=== PATIENT | male | born 1960 | race Caucasian/White ===

== ENCOUNTER 2017-06-29 10:59 | Emergency (ER) | payer MEDICARE, BC ==
[2017-06-29 11:13] VITALS: BP 117/63
[2017-06-29] MEDS ORDERED: Lidocaine/EPINEPHrine/Tetracaine Soln 5 ML Each TOP ONE (11:19)
--- NOTE | 2017-06-29 11:25 | EDM.PDOC ---
ED HPI GENERAL MEDICAL PROBLEM - General Chief Complaint: Laceration Stated Complaint: MED VIA NORTH Time Seen by Provider: 06/29/17 11:15 Source of Information: Reports: Patient, EMS, RN History Limitations: Reports: Language Barrier, Physical Impairment - History of Present Illness INITIAL COMMENTS - FREE TEXT/NARRATIVE: Alex is a 57 year old male with a hx of parkinson's who presents to the ED today from care home with a scalp laceration and ? right shoulder injury. Patient apparently fell out of bed and struck his head on his nightstand. Patient is alert, he denies any pain. He denies any pain to shoulder or any other area. Patient has difficulty speaking secondary to his parkinson's. Onset: Today - Related Data Allergies Allergy/AdvReac Type Severity Reaction Status Date / Time No Known Allergies Allergy Verified 06/29/17 11:12 Home Meds: Home Meds Carbidopa/Levodopa [Carbidopa-Levo ER 50-200] 1 tab PO QAM 01/13/14 [History] Carbidopa/Levodopa [Carbidopa-Levodopa 25-100] 3 tab PO QID 01/13/14 [History] Enalapril Maleate 20 mg PO BID 01/13/14 [History] Latanoprost [Xalatan 0.005% Ophth Soln] 1 drop EYEBOTH BEDTIME 01/13/14 [History ] Metoprolol Succinate [Toprol XL 100mg] 100 mg PO DAILY 01/13/14 [History] Rasagiline [Azilect] 1 mg PO DAILY 01/13/14 [History] Simvastatin 40 mg PO DAILY 01/13/14 [History] Tamsulosin HCl 0.4 mg PO DAILY 01/13/14 [History] rOPINIRole HCl [Ropinirole HCl] 3 mg PO TID 01/13/14 [History] Aspirin [Adult Low Dose Aspirin EC] 81 mg PO BEDTIME 01/14/14 [History] Docusate Sodium [Colace] 100 mg PO ASDIRECTED PRN 01/14/14 [History] Polyethylene Glycol 3350 [MiraLAX] 17 gm PO DAILY 01/14/14 [History] Zinc Picolinate 25 mg PO DAILY 01/14/14 [History] *Protein Supplement 1 bottle PO BID 05/02/14 [History] Dorzolamide/Timolol [Cosopt 2%-0.5% Ophth Soln] 0 ml EYEBOTH BID bottle [Rx] Multivitamin [Multi-Vitamin Daily] 1 tab PO DAILY 07/05/15 [History] QUEtiapine [SEROquel] 25 mg PO BID #60 tablet 08/26/15 [Rx] LORazepam [LORazepam] 06/29/17 [History] Omeprazole [Omeprazole] 06/29/17 [History] Past Medical History - Past Health History Medical/Surgical History: Denies Medical/Surgical History Other Musculoskeletal History: parkinson's. frequent flalls Neurological History: Reports: Parkinson's Other Dermatologic History: mulitple scabs and abrations to knees and for head from prior falls Social & Family History - Tobacco Use Smoking Status *Q: Never Smoker Second Hand Smoke Exposure: No - Alcohol Use Days Per Week of Alcohol Use: 0 - Recreational Drug Use Recreational Drug Use: No ED ROS GENERAL - Review of Systems Review Of Systems: See Below Constitutional: Reports: No Symptoms HEENT: Reports: No Symptoms Respiratory: Reports: No Symptoms Cardiovascular: Reports: No Symptoms Endocrine: Reports: No Symptoms GI/Abdominal: Reports: No Symptoms : Reports: No Symptoms Musculoskeletal: Reports: No Symptoms Skin: Reports: Wound Neurological: Reports: No Symptoms Psychiatric: Reports: No Symptoms Hematologic/Lymphatic: Reports: No Symptoms Immunologic: Reports: No Symptoms ED EXAM, SKIN/RASH Exam: See Below Exam Limited By: No Limitations General Appearance: Alert, WD/WN, No Apparent Distress Eye Exam: Bilateral Eye: EOMI, PERRL Ears: Normal External Exam, Normal TMs Nose: Normal Inspection Throat/Mouth: Normal Inspection, Normal Oropharynx Head: Other (1 cm scalp laceration just above right ear) Neck: Normal Inspection, Supple, Non-Tender, Full Range of Motion. No: Tender Lateral, Tender Midline Respiratory/Chest: No Respiratory Distress, Lungs Clear Cardiovascular: Normal Peripheral Pulses, Regular Rate, Rhythm, No Murmur GI/Abdominal: Normal Bowel Sounds, Soft, Non-Tender, No Organomegaly, Pelvis Stable Extremities: Normal Range of Motion, Non-Tender, Normal Capillary Refill, Other (raised area to right shoulder, top of humeral head, non-tender, likely chronic) Neurological: Alert, Oriented, CN II-XII Intact, Abnormal Reflexes, Other ( Tremulous at times, hx of parkinson's) Psychiatric: Normal Affect Skin: Warm, Dry, Wound/Incision (1 cm laceration above right ear (scalp)) Lymphatic: No Adenopathy Course - Vital Signs Last Recorded V/S: Last Vital Signs Temp 35.4 C 06/29/17 12:08 Pulse 72 06/29/17 12:08 Resp 16 06/29/17 12:08 BP 117/63 06/29/17 12:08 Pulse Ox 97 06/29/17 12:08 Alex is a 57-year-old male with a history of Parkinson's who presents to the emergency department today after falling and sustaining a scalp laceration to above his right ear. [facility] staff was also concerned as patient has a new deformity to his right shoulder which was not there prior to today. Patient on exam here is alert and oriented, his Parkinson's has made it difficult for him to speak. Patient denies any pain. Patient demonstrates full range of motion of right upper extremity, there is a step-off on exam and crepitus noted, concerns for AC separation versus clavicle fracture although patient is non-tender. There is question that this is old, however, again we have report from care home staff that this was not noted prior to today. Patient's tetanus shot is up- to-date. LET was applied to patient's scalp wound and wound was closed with 3 emilio after well irrigated with saline. X-ray was obtained of the patient's right shoulder which is consistent with a grade 3 AC separation, questionable finding on first right rib, X-ray was reviewed with Officer, agreed with AC separation, no acute dislocation or fracture noted per radiology. I spoke with Inez, nurse practitioner from our orthopedics clinic who recommends slinging patient's right arm and having him follow-up in the orthopedic clinic on Saturday. Sling was applied, discharge paperwork was discussed with patient and sent back to care home with him. Staple removal in 5 days. Patient can take Tylenol/ibuprofen for pain, ice was encouraged, patient should keep sling on as much as possible, reasons to return were discussed and patient was discharged in stable condition. I am still not convinced with patient's lack of pain that this is a new AC separation finding today, this can be further evaluated at the orthopedic clinic on Saturday. - Orders/Labs/Meds Orders: Active Orders 24 hr Category Date Time Status Shoulder Comp Rt [CR] Stat Exams 06/29/17 11:19 Taken Meds: Medications Discontinued Medications Generic Name Dose Route Start Last Admin Trade Name Aedlina PRN Reason Stop Dose Admin Lidocaine/Tetracaine 5 ml 06/29/17 11:19 06/29/17 12:22 Latisha Cochran TOP 06/29/17 11:20 5 ml ONETIME ONE Administration Departure - Departure Time of Disposition: 13:00 Disposition: DC/Tfer to SNF 03 Condition: Good Clinical Impression: Scalp laceration Qualifiers: Encounter type: initial encounter Qualified Code(s): S01.01XA - Laceration without foreign body of scalp, initial encounter AC separation, type 3 Qualifiers: Encounter type: initial encounter Laterality: right Qualified Code(s): S43.101A - Unspecified dislocation of right acromioclavicular joint, initial encounter - Discharge Information Instructions: Laceration Care, Adult, [id number], Stitches, Emilio, or Adhesive Wound Closure, [id number], Acromioclavicular Separation With Rehab- [facility] Referrals: PCP,None [Primary Care Provider] - Forms: ED Department Discharge Additional Instructions: Keep sling on as much as possible Ice to shoulder 20 minutes at a time several times a day. Tylenol/Ibuprofen as needed for pain. Ortho clinic will call Saturday to schedule an appt. Bacitracin to scalp laceration twice daily for 3 days. Staple removal in 5 days. - My Orders Last 24 Hours: My Active Orders 06/29/17 11:19 Shoulder Comp Rt [CR] Stat - Assessment/Plan Last 24 Hours: My Active Orders 06/29/17 11:19 Shoulder Comp Rt [CR] Stat
== END 2017-06-29 13:08 ==
LOC: JP.ED 10:59
DX: S01.01XA Laceration without foreign body of scalp, initial encounter (principal); S43.101A Unspecified dislocation of right acromioclavicular joint, initial encounter; G20 Parkinson's disease; Z79.899 Other long term (current) drug therapy; Z91.81 History of falling; Z79.82 Long term (current) use of aspirin; W06.XXXA Fall from bed, initial encounter
CPT/HCPCS: 12001; 73030; 99284; A9270

== ENCOUNTER 2017-07-24 10:56 | Emergency (ER) | payer MEDICARE, BC ==
--- NOTE | 2017-07-24 12:33 | EDM.PDOCBH ---
ED HPI GENERAL MEDICAL PROBLEM - General Chief Complaint: Behavioral/Psych Stated Complaint: MEDICAL VIA [facility] Time Seen by Provider: 07/24/17 12:21 Source of Information: Reports: Patient, RN Notes Reviewed History Limitations: Reports: No Limitations - History of Present Illness INITIAL COMMENTS - FREE TEXT/NARRATIVE: 57-year-old gentleman presents emergency department today via EMS services, he is a resident of [facility] initial call from EMS states that he is brought to the emergency department for evaluation of behavioral problems, in specific patient has been more belligerent and spitting out his medications. When questioned on this he states he was upset because he was not provided shower today. Also of note is his blood pressure is elevated he is complaining of a headache - Related Data Allergies Allergy/AdvReac Type Severity Reaction Status Date / Time No Known Allergies Allergy Verified 06/29/17 11:12 Home Meds: Home Meds Enalapril Maleate 5 mg PO DAILY 01/13/14 [History] Latanoprost [Xalatan 0.005% Ophth Soln] 1 drop EYEBOTH BEDTIME 01/13/14 [History ] Metoprolol Succinate [Toprol XL 100mg] 50 mg PO DAILY 01/13/14 [History] Rasagiline [Azilect] 1 mg PO DAILY 01/13/14 [History] Simvastatin 40 mg PO DAILY 01/13/14 [History] Tamsulosin HCl 0.4 mg PO DAILY 01/13/14 [History] rOPINIRole HCl [Ropinirole HCl] 2 mg PO TID 01/13/14 [History] Aspirin [Adult Low Dose Aspirin EC] 81 mg PO BEDTIME 01/14/14 [History] Docusate Sodium [Colace] 100 mg PO ASDIRECTED PRN 01/14/14 [History] Polyethylene Glycol 3350 [MiraLAX] 17 gm PO DAILY 01/14/14 [History] Zinc Picolinate 25 mg PO DAILY 01/14/14 [History] Dorzolamide/Timolol [Cosopt 2%-0.5% Ophth Soln] 0 ml EYEBOTH BID bottle [Rx] Multivitamin [Multi-Vitamin Daily] 1 tab PO DAILY 07/05/15 [History] LORazepam [LORazepam] 1 mg PO Q4H PRN 06/29/17 [History] Carbidopa/Levodopa [Rytary ER 36.25 mg-145 mg Cap] 2 cap PO TID 07/24/17 [ History] Carbidopa/Levodopa [Rytary ER 36.25 mg-145 mg Cap] 4 cap PO TID 07/24/17 [ History] Mirtazapine 15 mg PO BEDTIME 07/24/17 [History] Ondansetron HCl [Zofran] 4 mg PO Q6H PRN 07/24/17 [History] QUEtiapine [SEROquel] 75 mg PO BID 07/24/17 [History] Past Medical History Other Musculoskeletal History: parkinson's. frequent flalls Neurological History: Reports: Parkinson's Psychiatric History: Reports: Depression, Mood Swings Other Dermatologic History: mulitple scabs and abrations to knees and for head from prior falls Social & Family History - Tobacco Use Smoking Status *Q: Unknown Ever Smoked Second Hand Smoke Exposure: No - Caffeine Use Caffeine Use: Reports: Coffee - Alcohol Use Days Per Week of Alcohol Use: 0 - Recreational Drug Use Recreational Drug Use: No ED ROS GENERAL - Review of Systems Review Of Systems: See Below Constitutional: Reports: No Symptoms HEENT: Reports: No Symptoms Respiratory: Reports: No Symptoms Cardiovascular: Reports: No Symptoms GI/Abdominal: Reports: No Symptoms : Reports: No Symptoms Neurological: Reports: Headache Psychiatric: Reports: Mood Lability ED EXAM, BEHAVIORAL HEALTH - Physical Exam Exam: See Below Exam Limited By: No Limitations General Appearance: Alert, WD/WN, No Apparent Distress Respiratory/Chest: No Respiratory Distress, Lungs Clear, Normal Breath Sounds, No Accessory Muscle Use, Chest Non-Tender Cardiovascular: Regular Rate, Rhythm, No Murmur Psychiatric: Alert, Flat Affect. No: Uncooperative, Homicidal Thoughts, Suicidal Plan, Auditory Hallucinations, Visual Hallucinations, Grandiose Thoughts, Paranoid Thoughts, Threatening Behavior COURSE, BEHAVIORAL HEALTH COMP - Course Vital Signs: Last Vital Signs Temp 97.5 F 07/24/17 11:04 Pulse 77 07/24/17 14:38 Resp 16 07/24/17 13:53 BP 169/110 H 07/24/17 14:38 Pulse Ox 97 07/24/17 13:53 Orders, Labs, Meds: Active Orders 24 hr Category Date Time Status Cardiac Monitoring [RC] .As Directed Care 07/24/17 12:28 Active EKG Documentation Completion [RC] ASDIRECTED Care 07/24/17 12:29 Active EKG 12 Lead [EK] Stat Ther 07/24/17 12:29 Ordered Laboratory Tests 07/24/17 07/24/17 07/24/17 Range/Units 12:39 12:39 12:42 WBC 4.9 (4.5-11.0) K/uL RBC 5.45 (4.30-5.90) M/uL Hgb 14.8 (12.0-15.0) g/dL Hct 44.2 (40.0-54.0) % MCV 81 (80-98) fL MCH 27 (27-31) pg MCHC 34 (32-36) % Plt Count 213 (150-400) K/uL Neut % (Auto) 59 (36-66) % Lymph % (Auto) 22 L (24-44) % Edmunds % (Auto) 12 H (2-6) % Eos % (Auto) 6 H (2-4) % Baso % (Auto) 1 (0-1) % Sodium 139 L (140-148) mmol/L Potassium 4.8 (3.6-5.2) mmol/L Chloride 106 (100-108) mmol/L Carbon Dioxide 25 (21-32) mmol/L Anion Gap 12.8 (5.0-14.0) mmol/L BUN 17 (7-18) mg/dL Creatinine 1.0 (0.8-1.3) mg/dL Est Cr Clr Drug Dosing TNP Estimated GFR (MDRD) > 60 (>60) Glucose 114 H (74-106) mg/dL Calcium 8.8 (8.5-10.1) mg/dL Total Bilirubin 0.3 (0.2-1.0) mg/dL AST 29 (15-37) U/L ALT 24 D (12-78) U/L Alkaline Phosphatase 81 (46-116) U/L Troponin I < 0.017 (0.000-0.056) ng/mL Total Protein 7.5 (6.4-8.2) g/dL Albumin 3.9 (3.4-5.0) g/dL Globulin 3.6 H (2.3-3.5) g/dL Albumin/Globulin Ratio 1.1 L (1.2-2.2) Urine Color Yellow Urine Appearance Clear Urine pH 7.0 (4.5-8.0) Ur Specific [place] 1.010 (1.008-1.030) Urine Protein Negative (NEGATIVE) mg/dL Urine Glucose (UA) Normal (NEGATIVE) mg/dL Urine Ketones Negative (NEGATIVE) mg/dL Urine Occult Blood Negative (NEGATIVE) Urine Nitrite Negative (NEGAITVE) Urine Bilirubin Negative (NEGATIVE) Urine Urobilinogen Normal (NORMAL) mg/dL Ur Leukocyte Esterase Negative (NEGATIVE) Urine RBC Not seen (0-5) Urine WBC Not seen (0-5) Ur Epithelial Cells Not seen Amorphous Sediment Not seen Urine Bacteria Not seen Urine Mucus Not seen Medications Discontinued Medications Generic Name Dose Route Start Last Admin Trade Name Freq PRN Reason Stop Dose Admin Acetaminophen 650 mg 07/24/17 13:33 07/24/17 13:36 Tylenol PO 07/24/17 13:34 650 mg NOW ONE Administration Lisinopril 10 mg 07/24/17 13:55 07/24/17 14:01 Prinivil PO 07/24/17 13:56 10 mg ONETIME ONE Administration Departure - Departure Time of Disposition: 15:49 Disposition: DC/Tfer to [facility] 63 Condition: Fair Clinical Impression: Hypertensive urgency - Discharge Information Referrals: PCP,None [Primary Care Provider] - Forms: ED Department Discharge Additional Instructions: Please followup with your primary care provider in 3-5 days if not better, please call return to the emergency department with worsening of symptoms. - My Orders Last 24 Hours: My Active Orders 07/24/17 12:28 Cardiac Monitoring [RC] .As Directed 07/24/17 12:29 EKG Documentation Completion [RC] ASDIRECTED EKG 12 Lead [EK] Stat - Assessment/Plan Last 24 Hours: My Active Orders 07/24/17 12:28 Cardiac Monitoring [RC] .As Directed 07/24/17 12:29 EKG Documentation Completion [RC] ASDIRECTED EKG 12 Lead [EK] Stat Plan: Assessment Acuity = acute Site and laterality = hypertensive urgency comp came patient known history of Parkinson's Etiology = unclear etiology Manifestations = none Location of injury = Home Lab values = CBC, CMP, EKG, urinalysis all within normal limits Plan He was provided Tylenol and lisinopril his blood pressure came down the 160s no inappropriate behaviors were observed while in the ED for several hours plan is to discharge back to his current facility with long-term goal of transferring closer to family Patient was in agreement with the plan all questions were answered, they were instructed to return to the emergency department or call for worsening symptoms. This note was dictated using spotdock voice recognition software please call with any questions.
[2017-07-24] MEDS ORDERED: Acetaminophen 325 MG Tab PO ONE (13:33)
[2017-07-24] MEDS ORDERED: Lisinopril 10 MG Tab PO ONE (13:55)
[2017-07-24 14:41] VITALS: BP 169/110
== END 2017-07-24 17:50 ==
LOC: JP.ED 10:56
DX: I16.0 Hypertensive urgency (principal); G20 Parkinson's disease; F32.9 Major depressive disorder, single episode, unspecified; Z79.82 Long term (current) use of aspirin; Z79.899 Other long term (current) drug therapy
CPT/HCPCS: 36415; 80053; 81001; 84484; 85025; 93005; 99285; A9270; 93010

== ENCOUNTER 2017-09-10 11:20 | Emergency (ER) | payer MEDICARE, BC ==
--- NOTE | 2017-09-10 13:48 | EDM.PDOCBH ---
<Chad Burch - Last Filed: 09/12/17 06:29> ED HPI GENERAL MEDICAL PROBLEM - General Chief Complaint: Behavioral/Psych Stated Complaint: [facility] Time Seen by Provider: 09/10/17 11:35 - Related Data Allergies Allergy/AdvReac Type Severity Reaction Status Date / Time No Known Allergies Allergy Verified 06/29/17 11:12 Home Meds: Home Meds Enalapril Maleate 5 mg PO DAILY 01/13/14 [History] Latanoprost [Xalatan 0.005% Ophth Soln] 1 drop EYEBOTH BEDTIME 01/13/14 [History ] Metoprolol Succinate [Toprol XL 100mg] 50 mg PO DAILY 01/13/14 [History] Rasagiline [Azilect] 1 mg PO DAILY 01/13/14 [History] Simvastatin 40 mg PO DAILY 01/13/14 [History] Tamsulosin HCl 0.4 mg PO DAILY 01/13/14 [History] rOPINIRole HCl [Ropinirole HCl] 3 mg PO TID 01/13/14 [History] Aspirin [Adult Low Dose Aspirin EC] 81 mg PO BEDTIME 01/14/14 [History] Docusate Sodium [Colace] 100 mg PO ASDIRECTED PRN 01/14/14 [History] Polyethylene Glycol 3350 [MiraLAX] 17 gm PO DAILY 01/14/14 [History] Zinc Picolinate 220 mg PO DAILY 01/14/14 [History] Dorzolamide/Timolol [Cosopt 2%-0.5% Ophth Soln] 0 ml EYEBOTH BID bottle [Rx] Multivitamin [Multi-Vitamin Daily] 1 tab PO DAILY 07/05/15 [History] LORazepam 1 mg PO BID PRN 06/29/17 [History] Carbidopa/Levodopa [Rytary ER 36.25 mg-145 mg Cap] 2 cap PO TID 07/24/17 [ History] Carbidopa/Levodopa [Rytary ER 36.25 mg-145 mg Cap] 4 cap PO TID 07/24/17 [ History] Mirtazapine 15 mg PO BEDTIME 07/24/17 [History] Ondansetron HCl [Zofran] 4 mg PO Q6H PRN 07/24/17 [History] QUEtiapine [SEROquel] 75 mg PO BID 07/24/17 [History] Carbidopa/Levodopa [Carbidopa-Levo ER 50-200] 2 tab PO DAILY 09/10/17 [History] Carbidopa/Levodopa [Carbidopa-Levodopa 25-100] 1 tab PO ASDIRECTED 09/10/17 [ History] Omeprazole 20 mg PO DAILY 09/10/17 [History] Sulfamethoxazole/Trimethoprim [IJD: Sulfamethoxazole/Trimethoprim DS] 1 tab PO BID #20 tablet 09/18/17 [Rx] COURSE, BEHAVIORAL HEALTH COMP - Course Vital Signs: Last Vital Signs Temp 97 F 09/18/17 08:39 Pulse 77 09/18/17 08:39 Resp 16 09/18/17 08:39 BP 160/97 H 09/18/17 08:39 Pulse Ox 97 09/18/17 08:39 Orders, Labs, Meds: Laboratory Tests 09/10/17 09/10/17 09/10/17 Range/Units 11:42 11:42 12:23 WBC 7.5 (4.5-11.0) K/uL RBC 5.03 (4.30-5.90) M/uL Hgb 13.4 (12.0-15.0) g/dL Hct 41.0 (40.0-54.0) % MCV 82 (80-98) fL MCH 27 (27-31) pg MCHC 33 (32-36) % Plt Count 212 (150-400) K/uL Neut % (Auto) 79 H (36-66) % Lymph % (Auto) 9 L (24-44) % Grand % (Auto) 10 H (2-6) % Eos % (Auto) 2 (2-4) % Baso % (Auto) 0 (0-1) % Sodium 137 L (140-148) mmol/L Potassium 4.5 (3.6-5.2) mmol/L Chloride 105 (100-108) mmol/L Carbon Dioxide 24 (21-32) mmol/L Anion Gap 12.5 (5.0-14.0) mmol/L BUN 26 H D (7-18) mg/dL Creatinine 1.0 (0.8-1.3) mg/dL Est Cr Clr Drug Dosing TNP Estimated GFR (MDRD) > 60 (>60) Glucose 90 (74-106) mg/dL Calcium 8.8 (8.5-10.1) mg/dL Magnesium (1.8-2.4) mg/dL Total Bilirubin 0.6 D (0.2-1.0) mg/dL AST 38 H (15-37) U/L ALT 13 (12-78) U/L Alkaline Phosphatase 74 (46-116) U/L Total Protein 6.9 (6.4-8.2) g/dL Albumin 3.5 (3.4-5.0) g/dL Globulin 3.4 (2.3-3.5) g/dL Albumin/Globulin Ratio 1.0 L (1.2-2.2) TSH, Ultra Sensitive (0.358-3.740) uIU/mL Urine Color Yellow Urine Appearance Clear Urine pH 5.0 (4.5-8.0) Ur Specific Chloe 1.025 (1.008-1.030) Urine Protein Negative (NEGATIVE) mg/dL Urine Glucose (UA) Normal (NEGATIVE) mg/dL Urine Ketones 15 H (NEGATIVE) mg/dL Urine Occult Blood Negative (NEGATIVE) Urine Nitrite Negative (NEGAITVE) Urine Bilirubin Small (NEGATIVE) Urine Urobilinogen 1 (NORMAL) mg/dL Ur Leukocyte Esterase Negative (NEGATIVE) Urine RBC 0-5 (0-5) Urine WBC 0-5 (0-5) Ur Epithelial Cells Few Amorphous Sediment Not seen Urine Bacteria Few Urine Mucus Few 09/10/17 09/15/17 09/15/17 Range/Units 19:28 19:12 19:12 WBC 6.7 (4.5-11.0) K/uL RBC 4.89 (4.30-5.90) M/uL Hgb 13.0 (12.0-15.0) g/dL Hct 40.0 (40.0-54.0) % MCV 82 (80-98) fL MCH 27 (27-31) pg MCHC 33 (32-36) % Plt Count 277 (150-400) K/uL Neut % (Auto) 69 H (36-66) % Lymph % (Auto) 15 L (24-44) % Grand % (Auto) 12 H (2-6) % Eos % (Auto) 5 H (2-4) % Baso % (Auto) 0 (0-1) % Sodium 130 L (140-148) mmol/L Potassium 4.4 (3.6-5.2) mmol/L Chloride 96 L (100-108) mmol/L Carbon Dioxide 25 (21-32) mmol/L Anion Gap 13.4 (5.0-14.0) mmol/L BUN 19 H (7-18) mg/dL Creatinine 1.0 (0.8-1.3) mg/dL Est Cr Clr Drug Dosing TNP Estimated GFR (MDRD) > 60 (>60) Glucose 110 H (74-106) mg/dL Calcium 8.7 (8.5-10.1) mg/dL Magnesium (1.8-2.4) mg/dL Total Bilirubin (0.2-1.0) mg/dL AST (15-37) U/L ALT (12-78) U/L Alkaline Phosphatase (46-116) U/L Total Protein (6.4-8.2) g/dL Albumin (3.4-5.0) g/dL Globulin (2.3-3.5) g/dL Albumin/Globulin Ratio (1.2-2.2) TSH, Ultra Sensitive 2.038 (0.358-3.740) uIU/mL Urine Color Urine Appearance Urine pH (4.5-8.0) Ur Specific Chloe (1.008-1.030) Urine Protein (NEGATIVE) mg/dL Urine Glucose (UA) (NEGATIVE) mg/dL Urine Ketones (NEGATIVE) mg/dL Urine Occult Blood (NEGATIVE) Urine Nitrite (NEGAITVE) Urine Bilirubin (NEGATIVE) Urine Urobilinogen (NORMAL) mg/dL Ur Leukocyte Esterase (NEGATIVE) Urine RBC (0-5) Urine WBC (0-5) Ur Epithelial Cells Amorphous Sediment Urine Bacteria Urine Mucus 09/15/17 Range/Units 19:27 WBC (4.5-11.0) K/uL RBC (4.30-5.90) M/uL Hgb (12.0-15.0) g/dL Hct (40.0-54.0) % MCV (80-98) fL MCH (27-31) pg MCHC (32-36) % Plt Count (150-400) K/uL Neut % (Auto) (36-66) % Lymph % (Auto) (24-44) % Grand % (Auto) (2-6) % Eos % (Auto) (2-4) % Baso % (Auto) (0-1) % Sodium (140-148) mmol/L Potassium (3.6-5.2) mmol/L Chloride (100-108) mmol/L Carbon Dioxide (21-32) mmol/L Anion Gap (5.0-14.0) mmol/L BUN (7-18) mg/dL Creatinine (0.8-1.3) mg/dL Est Cr Clr Drug Dosing Estimated GFR (MDRD) (>60) Glucose (74-106) mg/dL Calcium 8.6 (8.5-10.1) mg/dL Magnesium 1.8 (1.8-2.4) mg/dL Total Bilirubin (0.2-1.0) mg/dL AST (15-37) U/L ALT (12-78) U/L Alkaline Phosphatase (46-116) U/L Total Protein (6.4-8.2) g/dL Albumin (3.4-5.0) g/dL Globulin (2.3-3.5) g/dL Albumin/Globulin Ratio (1.2-2.2) TSH, Ultra Sensitive (0.358-3.740) uIU/mL Urine Color Urine Appearance Urine pH (4.5-8.0) Ur Specific Chloe (1.008-1.030) Urine Protein (NEGATIVE) mg/dL Urine Glucose (UA) (NEGATIVE) mg/dL Urine Ketones (NEGATIVE) mg/dL Urine Occult Blood (NEGATIVE) Urine Nitrite (NEGAITVE) Urine Bilirubin (NEGATIVE) Urine Urobilinogen (NORMAL) mg/dL Ur Leukocyte Esterase (NEGATIVE) Urine RBC (0-5) Urine WBC (0-5) Ur Epithelial Cells Amorphous Sediment Urine Bacteria Urine Mucus Medications Discontinued Medications Generic Name Dose Route Start Last Admin Trade Name Freq PRN Reason Stop Dose Admin Acetaminophen 1,000 mg 09/11/17 23:47 09/11/17 23:59 Tylenol Extra Strength PO 09/11/17 23:48 1,000 mg ONETIME ONE Administration Aspirin 81 mg 09/11/17 09:15 09/17/17 20:01 Aspirin PO 81 mg BEDTIME EMILIANO Administration Carbidopa/Levodopa 2 tab 09/10/17 19:05 09/10/17 20:43 Sinemet 25-100 Mg PO 09/10/17 19:06 2 tab ONETIME ONE Administration Carbidopa/Levodopa 1.5 tab 09/11/17 22:30 09/18/17 07:03 Sinemet Cr 50-200 Mg PO 1.5 tab TID@0230,0630,2230 EMILIANO Administration Carbidopa/Levodopa 3 tab 09/11/17 14:30 09/18/17 08:33 Sinemet Cr 50-200 Mg PO 3 tab TID@1030,1430,1830 EMILIANO Administration Cephalexin 500 mg 09/11/17 23:15 09/14/17 22:44 Keflex PO 09/18/17 15:16 Not Given Q8H EMILIANO Diphenhydramine HCl 50 mg 09/15/17 17:32 09/15/17 17:36 Benadryl IM 09/15/17 17:33 50 mg ONETIME ONE Administration Dorzolamide/Timolol 1 ml 09/11/17 21:00 09/18/17 08:28 Cosopt 2%-0.5% Ophth Soln EYEBOTH 1 drop BID EMILIANO Administration Enalapril Maleate 5 mg 09/12/17 09:00 09/18/17 08:35 Vasotec PO 5 mg DAILY EMILIANO Administration Haloperidol Lactate 10 mg 09/12/17 02:01 09/12/17 02:07 Haldol IM 09/12/17 02:02 10 mg ONETIME ONE Administration Ibuprofen 600 mg 09/14/17 12:38 09/14/17 12:59 Motrin PO 09/14/17 12:39 600 mg ONETIME ONE Administration Ibuprofen 400 mg 09/17/17 23:18 09/17/17 23:28 Motrin PO 09/17/17 23:19 400 mg ONETIME ONE Administration Latanoprost 1 ml 09/11/17 09:30 09/17/17 20:03 Xalatan 0.005% Ophth Soln EYEBOTH 1 drop BEDTIME EMILIANO Administration Lorazepam 1 mg 09/10/17 19:04 09/10/17 20:43 Ativan PO 09/10/17 19:05 1 mg ONETIME ONE Administration Lorazepam 1 mg 09/11/17 09:16 09/18/17 01:56 Ativan PO 1 mg BID PRN Administration Agitation Lorazepam 2 mg 09/15/17 19:00 09/15/17 19:15 Ativan IVPUSH 09/15/17 19:01 2 mg ONETIME ONE Administration Lorazepam 1 mg 09/16/17 19:27 09/16/17 19:34 Ativan PO 09/16/17 19:28 1 mg BID ONE Administration Lorazepam 1 mg 09/17/17 21:32 09/17/17 21:45 Ativan PO 09/17/17 21:33 1 mg ONETIME ONE Administration Lorazepam 1 mg 09/17/17 23:17 09/17/17 23:27 Ativan IM 09/17/17 23:18 1 mg ONETIME ONE Administration Metoprolol Succinate 50 mg 09/12/17 09:00 09/18/17 08:34 Toprol Xl PO 50 mg DAILY EMILIANO Administration Mirtazapine 15 mg 09/11/17 09:30 09/17/17 20:02 Remeron PO 15 mg BEDTIME EMILIANO Administration Olanzapine 5 mg 09/12/17 01:44 09/12/17 02:00 Zyprexa PO 09/12/17 01:45 5 mg ONETIME ONE Administration Ondansetron HCl 4 mg 09/11/17 09:19 Zofran Odt PO Q6H PRN Nausea/Vomiting Pantoprazole Sodium 20 mg 09/12/17 09:00 09/13/17 08:44 Protonix PO 20 mg DAILY EMILIANO Administration Pantoprazole Sodium 40 mg 09/11/17 10:00 09/18/17 07:03 Protonix PO 40 mg ACBREAKFAST EMILIANO Administration Polyethylene Glycol 17 gm 09/12/17 09:00 09/18/17 08:27 Miralax PO 17 gm DAILY EMILIANO Administration Quetiapine Fumarate 75 mg 09/10/17 19:03 09/10/17 20:43 Seroquel PO 09/10/17 19:04 75 mg ONETIME ONE Administration Quetiapine Fumarate 75 mg 09/11/17 21:00 Seroquel PO BID EMILIANO Quetiapine Fumarate 75 mg 09/11/17 10:00 09/18/17 08:27 Seroquel PO 75 mg BID EMILIANO Administration Rasagiline 1 mg 09/12/17 08:00 09/18/17 07:03 Azilect PO 1 mg DAILY@0800 EMILIANO Administration Ropinirole HCl 3 mg 09/10/17 19:04 09/10/17 20:43 Requip PO 09/10/17 19:05 3 mg ONETIME ONE Administration Ropinirole HCl 3 mg 09/11/17 09:30 09/18/17 08:27 Requip PO 3 mg TID EMILIANO Administration Simvastatin 40 mg 09/11/17 09:30 09/17/17 20:04 Zocor PO 40 mg BEDTIME EMILIANO Administration Sodium Chloride 10 ml 09/15/17 19:00 09/15/17 19:14 Saline Flush FLUSH 10 ml ASDIRECTED PRN Administration Keep Vein Open Tamsulosin HCl 0.4 mg 09/11/17 09:30 09/17/17 20:02 Flomax PO 0.4 mg BEDTIME EMILIANO Administration Trimethoprim/Sulfamethoxazole 1 tab 09/14/17 08:15 09/18/17 08:27 Septra Ds PO 1 tab BID EMILIANO Administration Re-Assessment/Re-Exam: 23.05 long-term emergency morning, awaiting placement, dementia with behavioral problems, related to Parkinson's disease Transferred to my care as 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 Initially assessed by Dr. Haro, see her emergency note 23.00 Presence of 3 large boils right deltoid area are noted23.00 Apply dressings Start cephalexin 500 mg 3 times a day 2330 restless despite lorazepam by mouth already ordered, Zyprexa 10 mg by mouth is ordered but even after this patient was quite agitated and repeatedly getting up, has had several stumbles fortunately none with injury. Because of containing unsafe behavior, and threatening aggression, 10 mg Haldol IM for sedation for his safety for her safety and so he can rest This was very effective sedation and he was able to sleep the rest of the night Transferred to care of Dr. Velez pending disposition Departure - Departure Disposition: DC/Tfer to [facility] Clinical Impression: Aggressive behavior, Parkinsons disease - Discharge Information Prescriptions: Sulfamethoxazole/Trimethoprim [IJD: Sulfamethoxazole/Trimethoprim DS] 1 tab PO BID #20 tablet Referrals: PCP,None [Primary Care Provider] - <OfficerCuco - Last Filed: 09/13/17 18:04> COURSE, BEHAVIORAL HEALTH COMP - Course Re-Assessment/Re-Exam: Daily rounding, no issues continue working on placement physical therapy did work with him today he has no complaints no requests Medical Clearance: 09/11/17 14:48 Rounded on patient has no particular issues would like to eat up and ambulate tolerating diet I did order his regular medications they are now scheduled, currently having difficulty with placement due to remote history of violent tendencies per psychologist note <Arabella Haro - Last Filed: 09/17/17 18:34> ED HPI GENERAL MEDICAL PROBLEM - General Source of Information: Reports: Patient History Limitations: Reports: No Limitations - History of Present Illness INITIAL COMMENTS - FREE TEXT/NARRATIVE: pt arrived with a history of parkinsons and mood swings. Onset: Sudden Duration: Hour(s):, Other (pt was very upset and stated that he was going to kill himself. ) Associated Symptoms: Reports: No Other Symptoms Right Upper Arm Pain Score (Numeric/FACES): 7 Past Medical History - Past Health History Medical/Surgical History: Denies Medical/Surgical History HEENT History: Reports: Impaired Vision Cardiovascular History: Reports: High Cholesterol, Hypertension Other Musculoskeletal History: parkinson's. frequent flalls Neurological History: Reports: Parkinson's Psychiatric History: Reports: Depression, Mood Swings Endocrine/Metabolic History: Reports: Diabetes, Type II Other Dermatologic History: mulitple scabs and abrations to knees and for head from prior falls - Infectious Disease History Infectious Disease History: Reports: Chicken Pox Social & Family History - Tobacco Use Smoking Status *Q: Never Smoker Second Hand Smoke Exposure: No - Caffeine Use Caffeine Use: Reports: Coffee - Alcohol Use Days Per Week of Alcohol Use: 0 - Recreational Drug Use Recreational Drug Use: No ED ROS GENERAL - Review of Systems Review Of Systems: See Below Constitutional: Reports: No Symptoms HEENT: Reports: No Symptoms Respiratory: Reports: No Symptoms Cardiovascular: Reports: No Symptoms Endocrine: Reports: No Symptoms GI/Abdominal: Reports: No Symptoms : Reports: No Symptoms Musculoskeletal: Reports: No Symptoms Skin: Reports: No Symptoms ED EXAM, BEHAVIORAL HEALTH - Physical Exam Exam: See Below Text/Narrative:: pt arrived with a history of threaten to kill himself. [facility] and he was trying to crawl out the window. Exam Limited By: No Limitations General Appearance: Alert, Anxious, Moderate Distress, Other (pupils equal and react. It varies a great deal with how much he communicates. ) Ears: Normal TMs Nose: Normal Inspection Throat/Mouth: Normal Inspection Head: Atraumatic Neck: Normal Inspection Respiratory/Chest: No Respiratory Distress Cardiovascular: Regular Rate, Rhythm GI/Abdominal: Soft, Non-Tender (Male) Exam: Deferred Rectal (Males) Exam: Deferred Back Exam: Normal Inspection Extremities: Normal Inspection Neurological: Alert, Other ( Pt does not communicate significantly) Psychiatric: Alert, Normal Cognition, Oriented COURSE, BEHAVIORAL HEALTH COMP - Course Medical Clearance: 09/10/17 14:14 pt has remained calm while here at the Er. His lab work looked good. Dr Antionette caban was contacted and he wwill come and evaluate the pt. Discharge vs Psych Eval/Treatment:: 09/17/17 18:34 pt was evaluated by myself both on the and the . The pt has been stable and not combative. He has required staff in the room to keep him safe as he is unstable on his feet. He did require ativan 1 mg po last nite and he did settle down and slept alot of the nite. He will be transfered tomorrow. <Francisco Velez - Last Filed: 09/18/17 12:13> COURSE, BEHAVIORAL HEALTH COMP - Course Re-Assessment/Re-Exam: Patient is seen and evaluated today, found to have worsening inflammation of the sores on his right arm. Some exudative drainage was cultured, he is on cephalexin but this is very suspicious for MRSA and was switched to Bactrim DS twice a day. Lesions were redressed. 09-16-2017 9:23 AM Patient is comfortable this morning. Had an episode of spastic activity overnight which she has had many times in the past, seemed to respond well to Benadryl. Wounds on his arm and right leg were reassessed, they are improving especially on the arm. MRSA was positive. Still had some exudative drainage from the subcutaneous wound on the anterior right knee, with pressure the remaining infection was expelled and the wound dressed. It was not tender. Medications will be continued as directed and a care conference discussing best care and placement possibilities for the patient is planned later this morning. A lifelong friend of the patient made a morning visit for 30 minutes just left. He said the patient seems to be his baseline and he has no particular concerns of any significant changes since last time he saw him as an outpatient. Departure - Departure Time of Disposition: 10:20 Condition: Fair
[2017-09-10] MEDS ORDERED: QUEtiapine 25 MG Tab PO ONE (19:03)
[2017-09-10] MEDS ORDERED: rOPINIRole 1 MG Tab PO ONE (19:04)
[2017-09-10] MEDS ORDERED: LORazepam 1 MG Tab PO ONE (19:04)
[2017-09-10] MEDS ORDERED: Carbidopa/Levodopa 25-100 MG Tab PO ONE (19:05)
[2017-09-11] MEDS ORDERED: Carbidopa/Levodopa 50-200 MG Tab.ER PO SCH (09:15)
[2017-09-11] MEDS ORDERED: Ondansetron 4 MG Tab.DIS PO PRN (09:19)
[2017-09-11] MEDS: Aspirin 81 MG Tab.Chew PO SCH ×2 (09:42→21:22)
[2017-09-11] MEDS: rOPINIRole 1 MG Tab PO SCH ×3 (09:43→21:24)
[2017-09-11] MEDS: Enalapril 5 MG Tab PO SCH (09:44)
[2017-09-11] MEDS: Metoprolol Succinate 50 MG Tab.ER PO SCH (09:48)
[2017-09-11] MEDS: QUEtiapine 25 MG Tab PO SCH ×2 (09:49→21:27)
[2017-09-11] MEDS: Dorzolamide/Timolol 2%-0.5% Ophth Soln 10 ML Bottle EYEBOTH SCH ×2 (10:56→22:57)
[2017-09-11] MEDS: Pantoprazole 40 MG Tab.CR PO SCH (13:41)
[2017-09-11] MEDS: Polyethylene Glycol 3350 Powder 17 GM Packet PO SCH (13:42)
[2017-09-11] MEDS: Carbidopa/Levodopa 50-200 MG Tab.ER PO SCH ×3 (14:36→21:29)
[2017-09-11] MEDS ORDERED: QUEtiapine 100 MG Tab PO SCH (21:00)
[2017-09-11] MEDS: Simvastatin 20 MG Tab PO SCH (21:22)
[2017-09-11] MEDS: Tamsulosin 0.4 MG Cap.ER PO SCH (21:24)
[2017-09-11] MEDS: Mirtazapine 15 MG Tab PO SCH (21:24)
[2017-09-11] MEDS: Latanoprost 0.005% Ophth Soln 2.5 ML Bottle EYEBOTH SCH (22:58)
[2017-09-11] MEDS: LORazepam 1 MG Tab PO PRN (23:32)
[2017-09-11] MEDS ORDERED: Acetaminophen 500 MG Tab PO ONE (23:47)
[2017-09-12] MEDS ORDERED: OLANZapine 5 MG Tab PO ONE (01:44)
[2017-09-12] MEDS ORDERED: Haloperidol Lactate 5 MG/ML SDV IM ONE (02:01)
[2017-09-12] MEDS: Carbidopa/Levodopa 50-200 MG Tab.ER PO SCH ×6 (07:01→23:55)
[2017-09-12] MEDS: Polyethylene Glycol 3350 Powder 17 GM Packet PO SCH (08:22)
[2017-09-12] MEDS: LORazepam 1 MG Tab PO PRN (08:23)
[2017-09-12] MEDS: rOPINIRole 1 MG Tab PO SCH ×3 (08:23→20:55)
[2017-09-12] MEDS: Cephalexin 250 MG Cap PO SCH ×5 (08:24→23:57)
[2017-09-12] MEDS: Pantoprazole 40 MG Tab.CR PO SCH (08:24)
[2017-09-12] MEDS: QUEtiapine 25 MG Tab PO SCH ×2 (08:25→20:56)
[2017-09-12] MEDS: Dorzolamide/Timolol 2%-0.5% Ophth Soln 10 ML Bottle EYEBOTH SCH ×2 (08:25→20:54)
[2017-09-12] MEDS: Enalapril 5 MG Tab PO SCH (08:31)
[2017-09-12] MEDS: Metoprolol Succinate 50 MG Tab.ER PO SCH (08:31)
[2017-09-12] MEDS ORDERED: Pantoprazole 40 MG Tab.CR PO SCH (09:00)
[2017-09-12] MEDS: Latanoprost 0.005% Ophth Soln 2.5 ML Bottle EYEBOTH SCH ×2 (15:12→21:02)
[2017-09-12] MEDS: Tamsulosin 0.4 MG Cap.ER PO SCH ×2 (15:12→20:54)
[2017-09-12] MEDS: Mirtazapine 15 MG Tab PO SCH ×2 (15:12→20:55)
[2017-09-12] MEDS: Simvastatin 20 MG Tab PO SCH ×2 (15:12→20:56)
[2017-09-12] MEDS: Aspirin 81 MG Tab.Chew PO SCH (20:54)
[2017-09-13] MEDS: Carbidopa/Levodopa 50-200 MG Tab.ER PO SCH ×6 (03:16→22:46)
[2017-09-13] MEDS: Cephalexin 250 MG Cap PO SCH ×3 (06:33→22:45)
[2017-09-13] MEDS: Pantoprazole 40 MG Tab.CR PO SCH (07:45)
[2017-09-13] MEDS: Metoprolol Succinate 50 MG Tab.ER PO SCH (08:41)
[2017-09-13] MEDS: Enalapril 5 MG Tab PO SCH (08:45)
[2017-09-13] MEDS: rOPINIRole 1 MG Tab PO SCH ×3 (08:45→20:55)
[2017-09-13] MEDS: QUEtiapine 25 MG Tab PO SCH ×2 (08:46→20:56)
[2017-09-13] MEDS: Dorzolamide/Timolol 2%-0.5% Ophth Soln 10 ML Bottle EYEBOTH SCH ×2 (08:47→20:54)
[2017-09-13] MEDS: Polyethylene Glycol 3350 Powder 17 GM Packet PO SCH (08:47)
[2017-09-13] MEDS: Aspirin 81 MG Tab.Chew PO SCH (20:54)
[2017-09-13] MEDS: Tamsulosin 0.4 MG Cap.ER PO SCH (20:55)
[2017-09-13] MEDS: Mirtazapine 15 MG Tab PO SCH (20:55)
[2017-09-13] MEDS: Simvastatin 20 MG Tab PO SCH (20:57)
[2017-09-13] MEDS: Latanoprost 0.005% Ophth Soln 2.5 ML Bottle EYEBOTH SCH (20:57)
[2017-09-14] MEDS: Carbidopa/Levodopa 50-200 MG Tab.ER PO SCH ×6 (02:18→21:03)
[2017-09-14] MEDS: Pantoprazole 40 MG Tab.CR PO SCH (07:23)
[2017-09-14] MEDS: Cephalexin 250 MG Cap PO SCH ×3 (07:32→22:44)
[2017-09-14] MEDS: Enalapril 5 MG Tab PO SCH (08:50)
[2017-09-14] MEDS: Dorzolamide/Timolol 2%-0.5% Ophth Soln 10 ML Bottle EYEBOTH SCH ×2 (08:50→20:58)
[2017-09-14] MEDS: Metoprolol Succinate 50 MG Tab.ER PO SCH (08:53)
[2017-09-14] MEDS: rOPINIRole 1 MG Tab PO SCH ×3 (08:54→21:01)
[2017-09-14] MEDS: QUEtiapine 25 MG Tab PO SCH ×2 (08:55→21:02)
[2017-09-14] MEDS: Sulfamethoxazole/Trimethoprim 800-160 MG Tab PO SCH ×3 (08:57→21:07)
[2017-09-14] MEDS: Polyethylene Glycol 3350 Powder 17 GM Packet PO SCH (09:01)
[2017-09-14] MEDS ORDERED: Ibuprofen 600 MG Tab PO ONE (12:38)
[2017-09-14] MEDS: Aspirin 81 MG Tab.Chew PO SCH (20:57)
[2017-09-14] MEDS: Mirtazapine 15 MG Tab PO SCH (21:01)
[2017-09-14] MEDS: Simvastatin 20 MG Tab PO SCH (21:02)
[2017-09-14] MEDS: Latanoprost 0.005% Ophth Soln 2.5 ML Bottle EYEBOTH SCH (21:02)
[2017-09-14] MEDS: Tamsulosin 0.4 MG Cap.ER PO SCH (21:06)
[2017-09-15] MEDS: Carbidopa/Levodopa 50-200 MG Tab.ER PO SCH ×6 (02:14→22:46)
[2017-09-15] MEDS: Pantoprazole 40 MG Tab.CR PO SCH (07:00)
[2017-09-15] MEDS: Sulfamethoxazole/Trimethoprim 800-160 MG Tab PO SCH ×2 (08:51→20:50)
[2017-09-15] MEDS: QUEtiapine 25 MG Tab PO SCH ×2 (08:52→20:50)
[2017-09-15] MEDS: rOPINIRole 1 MG Tab PO SCH ×3 (08:52→20:50)
[2017-09-15] MEDS: Enalapril 5 MG Tab PO SCH (08:52)
[2017-09-15] MEDS: Metoprolol Succinate 50 MG Tab.ER PO SCH (08:54)
[2017-09-15] MEDS: Dorzolamide/Timolol 2%-0.5% Ophth Soln 10 ML Bottle EYEBOTH SCH ×2 (08:55→20:50)
[2017-09-15] MEDS: Polyethylene Glycol 3350 Powder 17 GM Packet PO SCH (08:55)
[2017-09-15] MEDS: LORazepam 1 MG Tab PO PRN (17:04)
[2017-09-15] MEDS ORDERED: diphenhydrAMINE 50 MG/ML SDV IM ONE (17:32)
[2017-09-15] MEDS ORDERED: Sodium Chloride 0.9% 10 ML Syringe FLUSH PRN (19:00)
[2017-09-15] MEDS ORDERED: LORazepam 2 MG/ML MDV IVPUSH ONE (19:00)
[2017-09-15] MEDS: Mirtazapine 15 MG Tab PO SCH (20:50)
[2017-09-15] MEDS: Simvastatin 20 MG Tab PO SCH (20:50)
[2017-09-15] MEDS: Tamsulosin 0.4 MG Cap.ER PO SCH (20:50)
[2017-09-15] MEDS: Latanoprost 0.005% Ophth Soln 2.5 ML Bottle EYEBOTH SCH (20:50)
[2017-09-15] MEDS: Aspirin 81 MG Tab.Chew PO SCH (20:50)
[2017-09-16] MEDS: Carbidopa/Levodopa 50-200 MG Tab.ER PO SCH ×6 (02:05→21:48)
[2017-09-16] MEDS: LORazepam 1 MG Tab PO PRN ×2 (03:44→17:33)
[2017-09-16] MEDS: Pantoprazole 40 MG Tab.CR PO SCH (07:10)
[2017-09-16] MEDS: Dorzolamide/Timolol 2%-0.5% Ophth Soln 10 ML Bottle EYEBOTH SCH ×2 (10:04→20:07)
[2017-09-16] MEDS: Polyethylene Glycol 3350 Powder 17 GM Packet PO SCH (10:07)
[2017-09-16] MEDS: rOPINIRole 1 MG Tab PO SCH ×3 (10:09→20:09)
[2017-09-16] MEDS: QUEtiapine 25 MG Tab PO SCH ×2 (10:11→20:09)
[2017-09-16] MEDS: Sulfamethoxazole/Trimethoprim 800-160 MG Tab PO SCH ×2 (10:11→20:09)
[2017-09-16] MEDS: Metoprolol Succinate 50 MG Tab.ER PO SCH (10:17)
[2017-09-16] MEDS: Enalapril 5 MG Tab PO SCH (10:18)
[2017-09-16] MEDS ORDERED: LORazepam 1 MG Tab PO ONE (19:27)
[2017-09-16] MEDS: Aspirin 81 MG Tab.Chew PO SCH (20:07)
[2017-09-16] MEDS: Tamsulosin 0.4 MG Cap.ER PO SCH (20:08)
[2017-09-16] MEDS: Mirtazapine 15 MG Tab PO SCH (20:08)
[2017-09-16] MEDS: Latanoprost 0.005% Ophth Soln 2.5 ML Bottle EYEBOTH SCH (20:09)
[2017-09-16] MEDS: Simvastatin 20 MG Tab PO SCH (20:10)
[2017-09-17] MEDS: Carbidopa/Levodopa 50-200 MG Tab.ER PO SCH ×6 (03:09→21:48)
[2017-09-17] MEDS: Pantoprazole 40 MG Tab.CR PO SCH (07:02)
[2017-09-17] MEDS: QUEtiapine 25 MG Tab PO SCH ×2 (09:24→20:03)
[2017-09-17] MEDS: Dorzolamide/Timolol 2%-0.5% Ophth Soln 10 ML Bottle EYEBOTH SCH ×2 (09:24→20:01)
[2017-09-17] MEDS: Sulfamethoxazole/Trimethoprim 800-160 MG Tab PO SCH ×2 (09:24→20:03)
[2017-09-17] MEDS: Polyethylene Glycol 3350 Powder 17 GM Packet PO SCH (09:24)
[2017-09-17] MEDS: rOPINIRole 1 MG Tab PO SCH ×3 (09:31→20:02)
[2017-09-17] MEDS: Enalapril 5 MG Tab PO SCH (09:39)
[2017-09-17] MEDS: Metoprolol Succinate 50 MG Tab.ER PO SCH (09:40)
[2017-09-17] MEDS: Aspirin 81 MG Tab.Chew PO SCH (20:01)
[2017-09-17] MEDS: Tamsulosin 0.4 MG Cap.ER PO SCH (20:02)
[2017-09-17] MEDS: Mirtazapine 15 MG Tab PO SCH (20:02)
[2017-09-17] MEDS: Latanoprost 0.005% Ophth Soln 2.5 ML Bottle EYEBOTH SCH (20:03)
[2017-09-17] MEDS: Simvastatin 20 MG Tab PO SCH (20:04)
[2017-09-17] MEDS ORDERED: LORazepam 1 MG Tab PO ONE (21:32)
[2017-09-17] MEDS ORDERED: LORazepam 2 MG/ML MDV IM ONE (23:17)
[2017-09-17] MEDS ORDERED: Ibuprofen 400 MG Tab PO ONE (23:18)
[2017-09-18] MEDS: Carbidopa/Levodopa 50-200 MG Tab.ER PO SCH ×3 (01:56→08:33)
[2017-09-18] MEDS: LORazepam 1 MG Tab PO PRN (01:56)
[2017-09-18] MEDS: Pantoprazole 40 MG Tab.CR PO SCH (07:03)
[2017-09-18] MEDS: Polyethylene Glycol 3350 Powder 17 GM Packet PO SCH (08:27)
[2017-09-18] MEDS: Sulfamethoxazole/Trimethoprim 800-160 MG Tab PO SCH (08:27)
[2017-09-18] MEDS: rOPINIRole 1 MG Tab PO SCH (08:27)
[2017-09-18] MEDS: QUEtiapine 25 MG Tab PO SCH (08:27)
[2017-09-18] MEDS: Dorzolamide/Timolol 2%-0.5% Ophth Soln 10 ML Bottle EYEBOTH SCH (08:28)
--- NOTE | 2017-09-18 08:30 | PCM.DCSUM1 ---
Discharge Summary - Discharge Data Discharge Date: 09/18/17 Discharge Disposition: DC/Tfer to [facility] Condition: Good - Patient Summary/Data Consults: Consultations 09/11/17 14:51 PT Evaluation and Treatment [CONS] Routine Please Evaluate and Treat. PT Reason for Consult: Ambulation This query below is only for informational purposes and is not editable. 09/13/17 12:29 PT Evaluation and Treatment [CONS] Routine Please Evaluate and Treat. PT Reason for Consult: Strengthening This query below is only for informational purposes and is not editable. - Patient Instructions Diet: Usual Diet as Tolerated Activity: As Tolerated - Discharge Plan Prescriptions/Med Rec: Sulfamethoxazole/Trimethoprim [IJD: Sulfamethoxazole/Trimethoprim DS] 1 tab PO BID #20 tablet Home Medications: Home Meds Enalapril Maleate 5 mg PO DAILY 01/13/14 [History] Latanoprost [Xalatan 0.005% Ophth Soln] 1 drop EYEBOTH BEDTIME 01/13/14 [History ] Metoprolol Succinate [Toprol XL 100mg] 50 mg PO DAILY 01/13/14 [History] Rasagiline [Azilect] 1 mg PO DAILY 01/13/14 [History] Simvastatin 40 mg PO DAILY 01/13/14 [History] Tamsulosin HCl 0.4 mg PO DAILY 01/13/14 [History] rOPINIRole HCl [Ropinirole HCl] 3 mg PO TID 01/13/14 [History] Aspirin [Adult Low Dose Aspirin EC] 81 mg PO BEDTIME 01/14/14 [History] Docusate Sodium [Colace] 100 mg PO ASDIRECTED PRN 01/14/14 [History] Polyethylene Glycol 3350 [MiraLAX] 17 gm PO DAILY 01/14/14 [History] Zinc Picolinate 220 mg PO DAILY 01/14/14 [History] Dorzolamide/Timolol [Cosopt 2%-0.5% Ophth Soln] 0 ml EYEBOTH BID bottle [Rx] Multivitamin [Multi-Vitamin Daily] 1 tab PO DAILY 07/05/15 [History] LORazepam 1 mg PO BID PRN 06/29/17 [History] Carbidopa/Levodopa [Rytary ER 36.25 mg-145 mg Cap] 2 cap PO TID 07/24/17 [ History] Carbidopa/Levodopa [Rytary ER 36.25 mg-145 mg Cap] 4 cap PO TID 07/24/17 [ History] Mirtazapine 15 mg PO BEDTIME 07/24/17 [History] Ondansetron HCl [Zofran] 4 mg PO Q6H PRN 07/24/17 [History] QUEtiapine [SEROquel] 75 mg PO BID 07/24/17 [History] Carbidopa/Levodopa [Carbidopa-Levo ER 50-200] 2 tab PO DAILY 09/10/17 [History] Carbidopa/Levodopa [Carbidopa-Levodopa 25-100] 1 tab PO ASDIRECTED 09/10/17 [ History] Omeprazole 20 mg PO DAILY 09/10/17 [History] Sulfamethoxazole/Trimethoprim [IJD: Sulfamethoxazole/Trimethoprim DS] 1 tab PO BID #20 tablet 09/18/17 [Rx] Referrals: PCP,None [Primary Care Provider] - - General Info Date of Service: 09/18/17 Admission Dx/Problem (Free Text: Behavior - Patient Data Vitals - Most Recent: Last Vital Signs Temp 36.2 C 09/17/17 09:36 Pulse 80 09/17/17 09:40 Resp 16 09/17/17 09:36 BP 132/86 09/17/17 09:40 Pulse Ox 99 09/17/17 09:36 Weight - Most Recent: 95.254 kg Med Orders - Current: Current Medications Aspirin (Aspirin) 81 mg PO BEDTIME [facility] Last Admin: 09/17/17 20:01 Dose: 81 mg Carbidopa/Levodopa (Sinemet Cr 50-200 Mg) 1.5 tab PO TID@0230,0630,2230 [facility] Last Admin: 09/18/17 07:03 Dose: 1.5 tab Carbidopa/Levodopa (Sinemet Cr 50-200 Mg) 3 tab PO TID@1030,1430,1830 [facility] Last Admin: 09/17/17 18:35 Dose: 3 tab Dorzolamide/Timolol (Cosopt 2%-0.5% Ophth Soln) 1 ml EYEBOTH BID [facility] Last Admin: 09/17/17 20:01 Dose: 1 drop Enalapril Maleate (Vasotec) 5 mg PO DAILY [facility] Last Admin: 09/17/17 09:39 Dose: 5 mg Latanoprost (Xalatan 0.005% Ophth Soln) 1 ml EYEBOTH BEDTIME [facility] Last Admin: 09/17/17 20:03 Dose: 1 drop Lorazepam (Ativan) 1 mg PO BID PRN PRN Reason: Agitation Last Admin: 09/18/17 01:56 Dose: 1 mg Metoprolol Succinate (Toprol Xl) 50 mg PO DAILY [facility] Last Admin: 09/17/17 09:40 Dose: 50 mg Mirtazapine (Remeron) 15 mg PO BEDTIME [facility] Last Admin: 09/17/17 20:02 Dose: 15 mg Ondansetron HCl (Zofran Odt) 4 mg PO Q6H PRN PRN Reason: Nausea/Vomiting Pantoprazole Sodium (Protonix) 40 mg PO ACBREAKFAST [facility] Last Admin: 09/18/17 07:03 Dose: 40 mg Polyethylene Glycol (Miralax) 17 gm PO DAILY [facility] Last Admin: 09/17/17 09:24 Dose: 17 gm Quetiapine Fumarate (Seroquel) 75 mg PO BID [facility] Last Admin: 09/17/17 20:03 Dose: 75 mg Rasagiline (Azilect) 1 mg PO DAILY@0800 [facility] Last Admin: 09/18/17 07:03 Dose: 1 mg Ropinirole HCl (Requip) 3 mg PO TID [facility] Last Admin: 09/17/17 20:02 Dose: 3 mg Simvastatin (Zocor) 40 mg PO BEDTIME [facility] Last Admin: 09/17/17 20:04 Dose: 40 mg Sodium Chloride (Saline Flush) 10 ml FLUSH ASDIRECTED PRN PRN Reason: Keep Vein Open Last Admin: 09/15/17 19:14 Dose: 10 ml Tamsulosin HCl (Flomax) 0.4 mg PO BEDTIME [facility] Last Admin: 09/17/17 20:02 Dose: 0.4 mg Trimethoprim/Sulfamethoxazole (Septra Ds) 1 tab PO BID [facility] Last Admin: 09/17/17 20:03 Dose: 1 tab Discontinued Medications Acetaminophen (Tylenol Extra Strength) 1,000 mg PO ONETIME ONE Stop: 09/11/17 23:48 Last Admin: 09/11/17 23:59 Dose: 1,000 mg Carbidopa/Levodopa (Sinemet 25-100 Mg) 2 tab PO ONETIME ONE Stop: 09/10/17 19:06 Last Admin: 09/10/17 20:43 Dose: 2 tab Cephalexin (Keflex) 500 mg PO Q8H EMILIANO Stop: 09/18/17 15:16 Last Admin: 09/14/17 22:44 Dose: Not Given Diphenhydramine HCl (Benadryl) 50 mg IM ONETIME ONE Stop: 09/15/17 17:33 Last Admin: 09/15/17 17:36 Dose: 50 mg Haloperidol Lactate (Haldol) 10 mg IM ONETIME ONE Stop: 09/12/17 02:02 Last Admin: 09/12/17 02:07 Dose: 10 mg Ibuprofen (Motrin) 600 mg PO ONETIME ONE Stop: 09/14/17 12:39 Last Admin: 09/14/17 12:59 Dose: 600 mg Ibuprofen (Motrin) 400 mg PO ONETIME ONE Stop: 09/17/17 23:19 Last Admin: 09/17/17 23:28 Dose: 400 mg Lorazepam (Ativan) 1 mg PO ONETIME ONE Stop: 09/10/17 19:05 Last Admin: 09/10/17 20:43 Dose: 1 mg Lorazepam (Ativan) 2 mg IVPUSH ONETIME ONE Stop: 09/15/17 19:01 Last Admin: 09/15/17 19:15 Dose: 2 mg Lorazepam (Ativan) 1 mg PO BID ONE Stop: 09/16/17 19:28 Last Admin: 09/16/17 19:34 Dose: 1 mg Lorazepam (Ativan) 1 mg PO ONETIME ONE Stop: 09/17/17 21:33 Last Admin: 09/17/17 21:45 Dose: 1 mg Lorazepam (Ativan) 1 mg IM ONETIME ONE Stop: 09/17/17 23:18 Last Admin: 09/17/17 23:27 Dose: 1 mg Olanzapine (Zyprexa) 5 mg PO ONETIME ONE Stop: 09/12/17 01:45 Last Admin: 09/12/17 02:00 Dose: 5 mg Pantoprazole Sodium (Protonix) 20 mg PO DAILY [facility] Last Admin: 09/13/17 08:44 Dose: 20 mg Quetiapine Fumarate (Seroquel) 75 mg PO ONETIME ONE Stop: 09/10/17 19:04 Last Admin: 09/10/17 20:43 Dose: 75 mg Quetiapine Fumarate (Seroquel) 75 mg PO BID EMILIANO Ropinirole HCl (Requip) 3 mg PO ONETIME ONE Stop: 09/10/17 19:05 Last Admin: 09/10/17 20:43 Dose: 3 mg - Exam Skin: Reports: Other (Weepy wound on right shoulder from previous flu shot, weepy abrasion on right knee) *Q Meaningful Use (DIS) - VTE *Q VTE Criteria *Q: - Stroke *Q Stroke Criteria *Q: - AMI *Q AMI Criteria *Q:
[2017-09-18] MEDS: Metoprolol Succinate 50 MG Tab.ER PO SCH (08:34)
[2017-09-18 08:35] VITALS: BP 160/97
[2017-09-18] MEDS: Enalapril 5 MG Tab PO SCH (08:35)
== END 2017-09-18 10:20 ==
LOC: JP.ED 11:20
DX: F91.8 Other conduct disorders (principal); G20 Parkinson's disease; F32.9 Major depressive disorder, single episode, unspecified; E11.9 Type 2 diabetes mellitus without complications; I10 Essential (primary) hypertension; Z79.82 Long term (current) use of aspirin; Z79.899 Other long term (current) drug therapy
CPT/HCPCS: 36415; 80053; 81001; 84443; 85025; 99285; A9270; 80048; 82310; 83735; 87070; 87077; 87186; 87205; 99284; J1200; J1630; J2060; J7050